=== PATIENT | female | born 1955 | race Caucasian/White ===

== ENCOUNTER 2017-09-08 15:42 | Emergency (ER) | payer OTHER ==
[2017-09-08 16:06] LABS: APPEARANCE,URINE Cloudy; BILIRUBIN,URINE 1+ (NEGATIVE); COLOR,URINE Amber; GLUCOSE, URINE (UA) NEGATIVE (NEGATIVE); KETONES,URINE TRACE (NEGATIVE); LEUKOCYTE ESTERASE ,URINE TRACE (NEGATIVE); NITRATE,URINE NEGATIVE (NEGATIVE); OCCULT BLOOD,URINE 3+ (NEG-TRACE); PH,URINE 6.5; UROBILINOGEN,URINE 0.2 (0.2-1.0 EU)
[2017-09-08 16:18] VITALS: BP 158/94; PULSE 77; RESP 20; TEMP 98.7; O2SAT 99
[2017-09-08 16:20] LABS: ICTOTEST,URINE NEGATIVE (NEGATIVE); RBC,URINE TNTC (0-3AV/HPF); WBC,URINE 20-40 (0-5AV/HPF)
== END 2017-09-08 16:46 | disposition home or self-care (01) ==
LOC: ED 15:42
DX: N30.01 Acute cystitis with hematuria (principal)
CPT/HCPCS: 81001; 87088; 99282; 99283

== ENCOUNTER 2017-10-27 17:28 | Emergency (ER) | payer OTHER ==
[2017-10-27 18:10] LABS: APPEARANCE,URINE Cloudy; COLOR,URINE Red; GLUCOSE, URINE (UA) NEGATIVE (NEGATIVE); OCCULT BLOOD,URINE 3+ (NEG-TRACE)
[2017-10-27 18:25] LABS: BILIRUBIN,URINE NEGATIVE (NEGATIVE); KETONES,URINE TRACE (NEGATIVE); LEUKOCYTE ESTERASE ,URINE TRACE (NEGATIVE); NITRATE,URINE NEGATIVE (NEGATIVE); UROBILINOGEN,URINE 0.2 (0.2-1.0 EU)
[2017-10-27 18:26] LABS: RBC,URINE TNTC (0-3AV/HPF)
[2017-10-27 18:39] VITALS: BP 153/120; PULSE 90; RESP 18; TEMP 97.3; O2SAT 97
[2017-10-27] MEDS ORDERED: SULFAMETHOXAZOLE/TRIMETHOPRI 800/160 MG PO ONE (18:39)
[2017-10-27] MEDS ORDERED: SULFAMETHOXAZOLE/TRIMETHOPRI 800/160 MG ONE (18:47)
== END 2017-10-27 19:23 | disposition home or self-care (01) ==
LOC: ED 17:28
DX: N39.0 Urinary tract infection, site not specified (principal)
CPT/HCPCS: 81001; 87077; 87088; 87186; 99282

== ENCOUNTER 2018-06-17 19:36 | Emergency (ER) | payer BC, OTHER ==
[2018-06-17 20:09] LABS: APPEARANCE,URINE Slightly Cloudy; BILIRUBIN,URINE NEGATIVE (NEGATIVE); COLOR,URINE Brown; GLUCOSE, URINE (UA) NEGATIVE (NEGATIVE); KETONES,URINE NEGATIVE (NEGATIVE); LEUKOCYTE ESTERASE ,URINE 1+ (NEGATIVE); NITRATE,URINE POSITIVE (NEGATIVE); OCCULT BLOOD,URINE 3+ (NEG-TRACE); UROBILINOGEN,URINE 0.2 (0.2-1.0 EU)
[2018-06-17 20:15] LABS: BACTERIA 1+ (< 1+); CRYSTALS NEGATIVE (0-3 AVE/HPF); RBC,URINE TNTC (0-3AV/HPF); WBC,URINE 60-80 (0-5AV/HPF)
[2018-06-17] MEDS ORDERED: SULFAMETHOXAZOLE/TRIMETHOPRI 800/160 MG PO ONE (20:31)
[2018-06-17 20:33] VITALS: BP 176/91; PULSE 80; RESP 16; TEMP 97.8; O2SAT 98
[2018-06-17] MEDS ORDERED: SULFAMETHOXAZOLE/TRIMETHOPRI 800/160 MG ONE (20:34)
== END 2018-06-17 20:44 | disposition home or self-care (01) ==
LOC: ED 19:36
DX: N30.01 Acute cystitis with hematuria (principal)
CPT/HCPCS: 81001; 99282; 99283; A9270-GY

== ENCOUNTER 2018-09-23 13:49 | Outpatient (CLI) | payer BC ==
[2018-06-17 20:33] VITALS: O2SAT 98
== END 2018-09-23 13:50 | disposition home or self-care (01) ==
LOC: CONVCARE 13:49
PROVIDERS: ATTEND Orthopaedic Surgery
DX: S82.142D Displaced bicondylar fracture of left tibia, subsequent encounter for closed fracture with routine healing (principal)
CPT/HCPCS: 73562

== ENCOUNTER 2018-10-28 12:27 | Outpatient (CLI) | payer BC ==
[2018-06-17 20:33] VITALS: O2SAT 98
== END 2018-10-28 12:28 | disposition home or self-care (01) ==
LOC: CONVCARE 12:27
PROVIDERS: ATTEND Orthopaedic Surgery
DX: S82.144D Nondisplaced bicondylar fracture of right tibia, subsequent encounter for closed fracture with routine healing (principal)
CPT/HCPCS: 73564